=== PATIENT | male | born 1980 | race African-American/Black ===

== ENCOUNTER 2022-10-07 10:58 | Emergency (ER) | payer OTHER ==
[~2022-10-07] VITALS: Ht 180.3 cm; Wt 122.5 kg
[2022-10-07] MEDS ORDERED: GARAMYCIN OPHT3.5 GM OP (12:05)
[2022-10-07] MEDS ORDERED: AMOX-CLAV 875-1 EACH PO (12:05)
[2022-10-07] MEDS ORDERED: TYLENOL325 MG (13:29)
== END 2022-10-07 12:12 | disposition home or self-care (01) ==
LOC: ER 10:58
DX: S01.111A Laceration without foreign body of right eyelid and periocular area, initial encounter (principal); W18.30XA Fall on same level, unspecified, initial encounter; Y93.89 Activity, other specified; Y92.89 Other specified places as the place of occurrence of the external cause; Y99.9 Unspecified external cause status